=== PATIENT | female | born 2000 | race Caucasian/White ===

== ENCOUNTER 2021-07-30 21:47 | Emergency (ER) | payer OTHER ==
[2021-07-30 22:19] VITALS: RESP 18
[2021-07-31] MEDS ORDERED: ACETAMINOPHEN TAB 500 MG TAB PO STA (00:44)
[2021-07-31] MEDS ORDERED: DEXAMETHASONE SOD PHOSPHATE 10 MG/ML 1 ML VIAL IM STA (00:44)
--- NOTE | 2021-07-31 00:51 | ED ---
ENT HPI - General Chief complaint: ENT Stated complaint: Neck swelling,Fever Time Seen by Provider: 07/31/21 00:31 Source: patient, family, RN notes reviewed Mode of arrival: ambulatory Limitations: no limitations - History of Present Illness Initial comments: This is a pleasant 21-year-old female presents complaining of a sore throat, runny nose, fatigue, some body aches, patient denies any shortness of breath. Denies any cough. Patient states the symptoms started on . Patient states that she uses had recurrent problems with pharyngitis and tonsillitis. Patient previously has had tonsillar stones. Patient has seen her primary care physician but was never assessed by an ENT doctor. No headache, no fever or chills, no changes in vision or hearing, no neck pain, no chest pain or shortness of breath, no abdominal pain, no nausea or vomiting, no changes in urination or bowel movements, no numbness or tingling, no extremity pain, no skin rashes or lesions. - Related Data Allergies Allergy/AdvReac Type Severity Reaction Status Date / Time No Known Allergies Allergy Verified 07/30/21 21:58 Review of Systems ROS Statement: Those systems with pertinent positive or pertinent negative responses have been documented in the HPI. ROS Other: All systems not noted in ROS Statement are negative. Past Medical History Past Medical History: No Reported History History of Any Multi-Drug Resistant Organisms: None Reported Past Surgical History: No Surgical Hx Reported Past Psychological History: No Psychological Hx Reported Smoking Status: Never smoker Past Alcohol Use History: None Reported Past Drug Use History: None Reported General Exam Limitations: no limitations General appearance: alert, in no apparent distress Head exam: Present: atraumatic, normocephalic, normal inspection Eye exam: Present: normal appearance, PERRL, EOMI. Absent: scleral icterus, conjunctival injection, periorbital swelling ENT exam: Present: normal exam, normal oropharynx, mucous membranes moist, TM's normal bilaterally, normal external ear exam. Absent: mucous membranes dry Expanded Ear exam: Present: normal external inspection Mouth exam: Present: normal external inspection, tongue normal. Absent: droolin g, trismus, muffled voice, tongue elevation Teeth exam: Present: normal inspection. Absent: dental caries, gingival enlargement Throat exam: tonsillomegaly (Patient has bilateral enlarged tonsils with tonsillar crypts noted. No evidence of inflammation or exudate), other (Patient has mucoid postnasal drainage noted. No purulent nasal discharge. Nasal turbinates are normal color.). negative: tonsillar erythema, tonsillar exudate, R peritonsillar mass, L peritonsillar mass Neck exam: Present: normal inspection. Absent: tenderness, meningismus, lymphadenopathy Respiratory exam: Present: normal lung sounds bilaterally. Absent: respiratory distress, wheezes, rales, rhonchi, stridor Cardiovascular Exam: Present: regular rate, normal rhythm, normal heart sounds. Absent: systolic murmur, diastolic murmur, rubs, gallop, clicks GI/Abdominal exam: Present: soft, normal bowel sounds. Absent: distended, tenderness, guarding, rebound, rigid Extremities exam: Present: normal inspection, full ROM, normal capillary refill. Absent: tenderness, pedal edema, joint swelling, calf tenderness Back exam: Present: normal inspection Neurological exam: Present: alert, oriented X3, CN II-XII intact Psychiatric exam: Present: normal affect, normal mood Skin exam: Present: warm, dry, intact, normal color. Absent: rash Course Vital Signs 07/30/21 07/31/21 21:56 01:17 Temperature 99.2 F Pulse Rate 95 89 Respiratory 18 18 Rate Blood Pressure 167/110 160/108 O2 Sat by Pulse 97 100 Oximetry Medical Decision Making - Medical Decision Making Patient was told to return to the ER for any signs or symptoms worsen. Told to return immediately if any other problems arise. All questions answered. Treatment plan discussed. Patient in agreement Every effort has been made to ensure accuracy of this dictation. However, due to the limitations of electronic medical records and dictation devices, errors in charting still occur. Patient was told to return to the ER for any signs or symptoms worsen. Told to return immediately if any other problems arise. All questions answered. Treatment plan discussed. Patient in agreement Every effort has been made to ensure accuracy of this dictation. However, due to the limitations of electronic medical records and dictation devices, errors in charting still occur. COVID-19 testing pending. Streptococcus testing normal. - Lab Data Lab Results 07/30/21 Range/Units 22:01 Group A Strep Rapid Negative (Negative) Disposition Clinical Impression: Viral URI Disposition: HOME SELF-CARE Condition: Good Instructions (If sedation given, give patient instructions): Pharyngitis (ED), Upper Respiratory Infection (ED) Additional Instructions: Alternate [id number] acetaminophen and ibuprofen as needed for general discomfort. Follow-up with the doctorasdiscussed. Follow-up with your regular physician as directed. Return to the ER immediately if any symptoms worsen, new symptoms arise, or any other problems develop. Is patient prescribed a controlled substance at d/c from ED?: No Referrals: Aide Muller MD [Primary Care Provider] - 08/02/21 Gabriel Landis MD [STAFF PHYSICIAN] - 08/01/21 Time of Disposition: 01:31
[2021-07-31 01:59] VITALS: BP 154/101; PULSE 87; TEMP 98.9
== END 2021-07-31 01:59 | disposition home or self-care (01) ==
LOC: EC 21:47
DX: J06.9 Acute upper respiratory infection, unspecified (principal); Z20.822 Contact with and (suspected) exposure to COVID-19
CPT/HCPCS: 87081; 87430; 87635; 99283; 96372; J1100